=== PATIENT | male | born 1980 | race Caucasian/White ===

== ENCOUNTER → 2016-07-30 | Day surgery (SDC) | payer OTHER ==
[~2016-07-30] MED LIST: ABILIFY2 MG PO; ALPRAZOLAM ER1 MG PO; AMITRIPTYLINE H25 MG PO; BACLOFEN20 M1 PO; DEXTROAMP-AMPHE10 MG PO; FLECTOR1 EACH TOP; KLONOPIN0.5 M1 PO; LEVOTHYROXINE25 MC1 PO; LEXAPRO20 MG PO; MORPHINE IR PO; MORPHINE SULFAT15 M3 PO; MOVANTIK25 MG PO; MS CONTIN30 MG PO; NEURONTIN600 MG PO; SOMA PO; VALIUM10 M1 PO; VYVANSE70 MG PO
--- NOTE | ~2016-07-30 | OR ---
Unit #: [id number] #: [id number] Patient: JAMEL TORRE [id number] [address] [address] [id number] MR#: [id number] NAME: JAMEL TORRE ROOM: Date of Procedure: 07/30/2016 Admission Date: 07/30/2016 Surgeon: Flex Jarrett M.D. : 1980 Attending Physician: Flex Jarrett M.D. Primary Care Physician: Generic Doctor Not In System PROCEDURE OPERATIVE NOTE PREOPERATIVE DIAGNOSIS Back pain, radiculopathy, degenerative lumbar disc disease. POSTOPERATIVE DIAGNOSIS Back pain, radiculopathy, degenerative lumbar disc disease. PROCEDURE PERFORMED Lumbar epidural steroid injection with intravenous sedation, fluoroscopic guidance, needle localization. HISTORY This is a 36-year-old male with return of back pain as a chronic problem. He was treated medically and has been treated with intermittent epidural steroid injections. Prior to being treated at this pain center he was treated about every three or four months with a single epidural steroid injection in conjunction with medical management. He had an injection with us six months ago. This did very well for about three or four months and we have repeat injection scheduled, so we will proceed with repeat injection at this point. ANESTHESIA Local, Versed. PROCEDURE The patient was placed in the seated position. Standard monitors were applied. Versed 2 mg was given for sedation. Anxiolysis was adequate. Vital signs remained stable. Sterile prep and drape then of the lumbar area was performed. The skin at the L4-L5 level was localized with 1% lidocaine. An 18-gauge Incuvotead needle was then advanced via the [id number]-lc-yxaljrcgwb technique and fluoroscopic guidance in toward the epidural space. After confirming proper positioning with fluoroscopy and radiographic contrast, 80 mg of Depo-Medrol and 4 mL of 0.125% bupivacaine were deposited. The patient tolerated the procedure otherwise well. He is discharged to the recovery in stable condition. Dictated by... Mehul Stahl/charla TD: 07/30/2016 10:36 Unit #: [id number] #: [id number] Patient: JAMEL TORRE JOB #: [id number] CC: Flex Jarrett M.D. PROCEDURE OPERATIVE NOTE Page 1 of 1 X Flex Jarrett MD X PROCEDURE OPERATIVE NOTE
== END | disposition home or self-care (01) ==
LOC: CCSC 08:49
DX: G89.29 Other chronic pain (principal); M51.16 Intervertebral disc disorders with radiculopathy, lumbar region; M54.9 Dorsalgia, unspecified
CPT/HCPCS: J1040; J2250